=== PATIENT | male | born 1995 | race Hispanic/Latino ===

== ENCOUNTER 2023-10-31 18:48 | Emergency (ER) | payer BC, SELFPAY ==
[2023-10-31 18:59] VITALS: BP 137/84; PULSE 72; RESP 16; TEMP 36.9; O2SAT 100
--- NOTE | 2023-10-31 19:08 | ED.URI ---
HPI - URI/Sore Throat General Chief Complaint: Upper Respiratory Infection Stated Complaint: Sinus Time Seen by Provider: 10/31/23 19:14 Source: patient, RN notes reviewed and old records reviewed Mode of arrival: ambulatory Limitations: no limitations History of Present Illness HPI Narrative: 28-year-old male presents to the [facility] with complaints sinus congestion for 2 weeks. States that he has had a cough, postnasal drainage, felt short of breath yesterday for about 30 minutes but feels okay today. States he has taken allergy medication 1 time minute did not help. Tried some [id number] cold and flu medication Onset (ago): week(s) (Over 2 weeks) Treatments prior to arrival: cold medicine Related Data Allergies Allergy/AdvReac Type Severity Reaction Status Date / Time No Known Allergies Allergy Unknown Unverified 04/12/17 07:41 Review of Systems Review of Systems: All systems reviewed & are unremarkable except as noted in HPI and below Constitutional: Constitutional: Reports no additional constitutional complaints Eyes: Eyes: Reports no additional eye complaints ENT: Reports as per HPI Cardiovascular: Cardiovascular: Reports no additional cardiovascular complaints, Denies chest pain and Denies dyspnea Respiratory: Respiratory: Reports as per HPI, Denies chest congestion, Reports cough and Denies dyspnea Gastrointestinal: Gastrointestinal: Reports no additional gastrointestinal complaints, Denies abdominal pain, Denies nausea and Denies vomiting Musculoskeletal: Musculoskeletal: Reports no additional musculoskeletal complaints Integumentary/Breasts: Skin/Breast: Reports system reviewed and no additional complaints, except as docu Neurologic: Reports system reviewed and no additional complaints, except as documented Psychiatric: Psychiatric: Reports no additional psychiatric complaints Allergic/Immunologic: Allergic/Immunologic: Reports no additional allergic/immunologic complaints PMFSH Comments At the time of my signature, I reviewed and agree with the nursing past medical, surgical, social, and family history. There is no relevant family history pertinent to the patient complaint. Exam Const: General: cooperative, healthy appearing, comfortable, no acute distress, well developed, alert and well nourished Nutritional Appearance: well nourished Orientation/consciousness: patient oriented x3 Limitations: no limitations HENMT: Head: normal to inspection Ears: hearing grossly normal bilaterally, external ears normal, EAC's normal, mastoids normal, no periauricular adenopathy and TM abnormal wth effusion serous bilateral; not bulging and not erythematous Face/Nose/Sinus: Normal external nose present, Normal nares present, Normal nasal mucous membranes and turbinates present, No nasal discharge present, normal facial exam, sinuses nontender, face symmetric, No abrasion, No crepitus, No ecchymosis, No erythema and No sinus tenderness Face and sinus: normal facial exam, sinuses nontender and face symmetric Mouth: Yes Normal oral and palatal mucosa present, Yes lip normal and Yes moist mucous membranes Throat: posterior oropharynx normal, tonsils normal, uvula midline, postnasal drainage and no uvular edema Eyes: General: appearance normal, both eyes and all related structures Alignment and Position: alignment normal Periorbital: periorbital findings normal Pupils: Equal, round and reactive pupils present EOM: EOMs intact bilaterally Neck: Neck: normal visual inspection, full ROM, no lymphadenopathy and no meningeal signs Chest: Chest palpation & inspection: normal inspection of the chest Resp: Effort & Inspection: normal respiratory effort and able to speak in complete sentences Auscultation: clear to auscultation bilaterally, no crackles, no rales, no rhonchi and no wheezes Cardio: Rate: regular rate Rhythm: regular rhythm Back/Spine/Pelvis: Cervical Spine: cervical ROM normal Skin: General skin e
== END 2023-10-31 19:25 | disposition home or self-care (01) ==
PROVIDERS: Emergency Provider Nurse Practitioner
DX: J32.9 Chronic sinusitis, unspecified (principal); J40 Bronchitis, not specified as acute or chronic
CPT/HCPCS: 99213; G0463

== ENCOUNTER 2024-03-03 09:51 | Emergency (ER) | payer BC, SELFPAY ==
--- NOTE | ~2024-03-03 | CT_ITS ---
Non-contrast Head CT History: Head injury Technique: Axial non-contrast imaging of the brain was performed. Dose reduction technique was used on this scan by utilizing automated exposure control and iterative reconstruction technique. The dose -length product (DLP) was 681.00 mGy-cm. Findings: There is no evidence of intracranial hemorrhage, mass lesion, or acute infarct. Brain par enchyma appears normal. The ventricles and subarachnoid spaces are normal in size. The calvarium ap pears normal. The visualized paranasal sinuses and mastoid air cells are clear. Impression: No significant abnormality seen. Reviewed, dictated and finalized at location . Impression: No significant abnormality seen.
[2024-03-03 09:55] VITALS: BP 113/61; PULSE 82; RESP 18; TEMP 36.8; O2SAT 96
--- NOTE | 2024-03-03 10:16 | ED.HEATRA ---
HPI - Head Injury General Chief complaint: Head Injury Stated complaint: head injury Time Seen by Provider: 03/03/24 09:59 Source: patient Mode of arrival: ambulatory Limitations: no limitations History of Present Illness HPI Narrative: This is a 29-year-old male that presents to the emergency department after a head injury. Reports a long wooden shelf fell from the top of the steps and hit him in the head. He did not lose consciousness. Reports feeling lightheaded and nauseous. Also reports a headache. He sustained a laceration to the top of his head. Unsure of last tetanus vaccination. Denies vomiting, focal numbness or weakness. Related Data Allergies Allergy/AdvReac Type Severity Reaction Status Date / Time No Known Allergies Allergy Unknown Unverified 04/12/17 07:41 Review of Systems Review of Systems: CONSTITUTIONAL: Denies fever EYES: Denies visual changes GASTROINTESTINAL: Reports nausea. Denies vomiting NEUROLOGIC: Reports headache. Denies numbness, or weakness. All systems reviewed & are unremarkable except as noted in HPI and below PMFSH Past Medical History Medical History (Updated 03/03/24 @ 11:06 by Chantel Ramos PA-C) No active medical problems Social History Social History (Updated 03/03/24 @ 10:18 by Chantel Ramos PA-C) Smoking status: Never smoker Exam Narrative: GENERAL: Well-appearing, well-nourished, and in no acute distress. HEAD: Normocephalic. 2.5cm linear laceration into subcutaneous tissue to the right scalp EYES: PERRLA and EOMI. ENT: Nares clear, no rhinorrhea or epistaxis. Mucous membranes moist. Oropharynx without tonsillar hypertrophy exudate or other lesions. Bilateral TMs pearly hills non-bulging NECK: Supple. No adenopathy or masses. CHEST: Clear to auscultation. No respiratory distress. No wheezes rales or rhonchi HEART: Regular rate and rhythm. No murmur heard. Normal peripheral pulses. EXTREMITIES: Normal range of motion. No edema. Strength equal in bilateral upper and lower extremities (5/5) SKIN: Warm, dry, no rash. NEURO: No focal deficits. Alert and oriented x3. Cranial nerves 2-12 grossly intact PSYCH: Normal mood and affect Course Course Emergency Course: Patient updated on workup and educated on further wound care Vital Signs Vital signs: Vital Signs Pulse Rate 82 09/06/24 09:55 Respiratory Rate 18 03/03/24 09:55 Blood Pressure 113/61 03/03/24 09:55 Pulse Oximetry 96 03/03/24 09:55 Oxygen Delivery Room Air 03/03/24 09:55 Pulse Rate 82 03/03/24 09:55 Respiratory Rate 18 03/03/24 09:55 Blood Pressure 113/61 03/03/24 09:55 Pulse Oximetry 96 03/03/24 09:55 Oxygen Delivery Room Air 03/03/24 09:55 Procedures Laceration Laceration 1: Date: 03/03/24 Time: 10:47 Site: scalp Side (If applicable): right Size (cm): 2.5 Description: linear Depth: simple, single layer Local Anesthetic: lidocaine 1% and with epi Amount of anesthesia used (mL): 2 Pre-repair: wound explored and irrigated ====== Skin Level ====== Skin layer closed with: santi Number of sutures: 2 ====== Subcutaneous Layer ====== ====== Muscle Layer ====== ====== Tendon Layer ====== MDM - Head Injury MDM Narrative Medical decision making narrative: This is a 29 year old male that presents to the ER after a head injury with laceration to the scalp. Reports a large shelf falling onto his head. Reports nausea, lightheadedness, headache. He did not lose consciousness. He is neurologically intact. CT brain without acute intracranial abnormalities. Patient was updated on tetanus vaccination. wound was irrigated and closed with santi. Patient was educated on further wound care. He is to follow up with primary provider. He was given warnings to return to the ER Imaging Data Radiologist's impression: ITS Impressions Head CT
[2024-03-03] MEDS: TETANUS,DIPHTHERIA,AC PERTUSSIS ADULT (0.5 ML) BOOSTRIX IM (10:33)
[2024-03-03] MEDS: LIDO 1%/EPINEPHRINE 1:100,000 20 ML VIAL 10 ML INFILTRATE (10:34)
[2024-03-03 11:20] VITALS: BP 113/82; PULSE 71; RESP 20; TEMP 36.9; O2SAT 100
== END 2024-03-03 11:20 | disposition home or self-care (01) ==
LOC: ANHED 11:12
PROVIDERS: Emergency Provider Physician Assistant
DX: S01.01XA Laceration without foreign body of scalp, initial encounter (principal); W20.8XXA Other cause of strike by thrown, projected or falling object, initial encounter; Z23 Encounter for immunization
CPT/HCPCS: 12001; 70450; 90471; 90715; 99284

== ENCOUNTER 2024-08-24 04:42 | Emergency (ER) | payer BC, SELFPAY ==
--- OUTSIDE RECORDS SUMMARY | 2024-08-24 04:44 | XMS_ITS | CONTINUITY OF CARE DOCUMENT ---
Author Name ynes quick Address Unknown Organization [facility] Address [address] [place] [address] Phone [phone] Care Team Providers Care Sensory Scientist Name Role Phone Idris Braxton MD Unavailable [phone] Idris Braxton MD Unavailable [phone] INSURANCE PROVIDERS Payer name Policy type / Coverage type [employer] ID [id number]
--- OUTSIDE RECORDS SUMMARY | 2024-08-24 04:45 | XMS_ITS | Data Portability ---
Author Organization [place] [facility], Main Office Address [address] [place] [address] Assessment No assessment recorded. Plan of Treatment Reminders Order Date Submit Date Provider Last Modified By Organization Details Last Modified Time Details Appointments Any 15 2024 04:00P M Elizabeth simmons MD Not available Not available Not available Lab vitamin D, 25-hydrox y, total, serum 2024 025 [facility] [employer] [facility], [address], [place], [address], 07/13/2024 17:41:31 CBC w/ auto diff 2024 025 [facility], [address], [place], [address], 07/13/2024 17:41:30 CMP, serum or plasma 2024 025 [facility], [address], [place], [address], 07/13/2024 17:41:31 TSH + free T4, serum 2024 025 [facility], [address], [place], [address], 07/13/2024 17:41:32 lipid panel, serum 2024 025 [facility], [address], [place], [address], 07/13/2024 17:41:29 vitamin D, 25-hydrox y, total, serum 2023 024 [email or web address], [address], [place], [address], 07/06/2024 09:12:02 CMP, serum or plasma 2023 024 [email or web address], [address], [place], [address], 07/06/2024 09:12:01 CBC w/ auto diff 2023 024 [email or web address], [address], [place], [address], 07/06/2024 09:12:01 TSH + free T4, serum 2023 024 [email or web address], [address], [place], [address], 07/06/2024 09:12:01 lipid panel, serum 2023 024 [email or web address], [address], [place], [address], 07/06/2024 09:12:01 vitamin D, 25-hydrox y, total, serum 2023 024 [email or web address], [address], [place], [address], 01/12/2024 17:34:26 CMP, serum or plasma 2023 024 [email or web address], [address], [place], [address], 01/12/2024 17:34:25 CBC w/ auto diff 2023 [address] [place] [address] [facility], [address], [place], [address], 01/12/2024 17:34:25 TSH + free T4, serum 2023 024 [place] [address] [employer] [facility], [address], [place], [address], 01/12/2024 17:34:26 lipid panel, serum 2023 024 [place] [address] [employer] [facility], [address], [place], [address], 01/12/2024 17:34:26 Referral psychiatr ist referral - Please call patient to schedule an appointme nt. Thank you.Note from provider: Has seen Brian Kwon--lorena agee like to continue with her 2024 [facility] [address], [place], [address], 08/15/2024 12:35:26 Procedures None recorded. Surgeries None recorded. Imaging CT, chest, w/o contrast - no auth required [address] ([facility]), [address] [place], [address], 10/26/2023 15:53:15 MRI, brain, w/o contrast - no auth required [address] ([facility]), [address] [place], [address], 10/26/2023 15:53:15 Medication Orders Ubrelvy 50 mg tablet 2023 024 [id number], [address], [place], [place], [id number], 01/06/2024 16:30:54 buspirone 5 mg tablet 2023 024 [id number], [address], [place], [place], [id number], 07/13/2024 16:51:21 Ubrelvy 50 mg tablet 2023 024 [facility] #[id number], [address], [place], [place], [phone], 07/08/2023 17:14:15 Patient TargetsNo targets recorded. Patient InstructionsNo instructions recorded. Reason for Referral Psychiatrist Referral for An xiety Please call patient to schedule an appointment. Thank you.Note from provider: Has seen Brian Kwon--would like to continue with her Referring Physician: Elizabeth Jones, Internal Medicine, Encounter Date: 07/13/2024 Results Created Date Observation Date Name Description Value Unit Range Abnormal Flag Note LastModifiedBy Organization Detail LastModifiedTime 07/19/19 24 07/19/2023 CT, chest , w/o contr ast [facility] [address] [address] Patien t Name: RASHEED BRADLEY O Access ion #: [id number] Sex: M : 1994 8 Dictat ed By: Shantanu Mata ms Attend ing Physic emilie: GEE KATHLEEN Orderi Physic emilie: GEE KATHLEEN Exam Date: 2023 14:48 PM Exam Name: CT CHEST WO Admitt ing Diagno sis(es ): Proced ure: CT CHEST WO Reason for study/ Clinic al Histor y: Chest wall pain Compar domonique Study: None availa ble at time of dictat ion. Exam Date: 2:48 PM REPORTING DEVELOPER TECHNI QUE: Multid etecto r CT of the chest was perfor med from the lung apices to the upper abdome n withou t the use of intrav enous contra ct. Axial, garg l and sagitt al multip lanar reform ats were perfor med. RADIAT ION DOSE: CTDI volume is 13.2 mGy. Dose-l ength produc t is 532.7 mGy*cm The dose indica tors for CT are the volume Comput ed Tomogr aphy (CT) Dose Index (CTDIv ol) and the Dose Length Produc t (DLP), and are measur ed in units of mGy and mGy-cm , respec tively . These indica tors are not patien t dose, but values genera maegan from the CT scanne r acquis ition factor s. The report includ es radiat ion exposu re data for exposu res receiv ed during this examin ation. FINDIN GS: Lower neck: Normal thyroi d. Lungs: No focal consol idatio n, pleura l effusi on or pneumo thorax . Heart/ Vascul ar Struct ures: Normal heart size. No perica rdial effusi on. Lymph Nodes: No adenop athy Pleura : No pleura l effusi on or signif icant pneumo thorax . Page 1 [facility] [place] [address] Patien t Name: RASHEED BRADLEY Niall Access ion #: [id number] Sex: M : 1994 7 Dictat ed By: Shantanu Mata ms Attend ing Physic emilie: MUNIRA MENDEZ [facility] Physic emilie: GEE KATHLEEN Exam Date: 2023 14:48 PM Exam Name: CT CHEST WO Admitt ing Diagno sis(es ): Muscul oskele prasanna: No acute osseou s abnorm ality. Soft tissue s: Normal . Upper abdome n: Limite d portio ns of the upper abdome n are unrema rkable . IMPRES MARITZA: No acute intrat horaci c abnorm ality. Unrema rkable CT of the chest withou t contra st. Radiat ion optimi zation : All CT scans at this facili ty use at least one of these dose optimi zation techni ques: automa maegan exposu re contro l mA and/or kV adjust ment per patien t size (inclu emanuel target ed exams where dose is matche d to clinic al indica tion) or iterat javier recons tructi on. Electr onical ly Signed by: Shantanu Mata ms at 2023 16:04: 06 PM Page 2 [email or web address] [facility] (Imaging) [address] [place], [address], 10/26/2023 15:54:14 07/19/19 24 07/19/2023 MRI, brain , w/o contr ast [facility] [place] [address] [place] [id number] Patien t Name: CHELYMAGALI O RASHEED O Access ion #: [id number] Sex: M : 1994 8 Dictat ed By: Lee Watson Attend ing Physic emilie: GEE KATHLEEN Orderi Physic emilie: GEE KATHLEEN Exam Date: 2023 14:50 PM Exam Name: MRI BRAIN WO Admitt ing Diagno sis(es ): ACCESS ION #: [id number] EXAMIN ATION: MRI BRAIN WO INDICA TION: migrai ne COMPAR DOMONIQUE: None TECHNI QUE: Multip lanar, multis equenc e magnet ic resona nce imagin g of the brain was perfor med withou t the use of intrav enous contra st. FINDIN GS: No eviden ce of acute or remote infarc t. No intrac ranial hemorr evelio. No mass effect . There is perive ntricu lar/de ep white matter T2/FLA IR hyperi ntensi ty is nonspe cific, but most common ly associ ated with chroni c microv ascula r diseas e. The ventri cles and sulci are normal in size for age. Clear basal cister ns. Flow voids in the major intrac ranial vessel s are mainta ined. No abnorm ality of the orbits . Parana vikram sinuse s and mastoi d air cells are clear. No abnorm ality of the visual ized osseou s struct ures and extrac ranial soft tissue s. IMPRES MARITZA: Page 1 [facility] [address] [facility] [address], [place] [address] Patien t Name: RASHEED BRADLEY O Access ion #: [id number] Sex: M : 1994 8 Dictat ed By: Lee Watson Attend ing Physic emilie: MUNIRA MENDEZ [facility] Physic emilie: GEE KATHLEEN Exam Date: 2023 14:50 PM Exam Name: MRI BRAIN WO Admitt ing Diagno sis(es ): No acute infarc t, intrac ranial hemorr evelio, mass effect , or hydroc ephalu s. Electr onical ly Signed by: Lee Watson at 2023 16:04: 30 PM Page 2 [email or web address] [facility] [address] [facility] [place], [address], 10/26/2023 15:54:15 Result Notes None recorded. Problems Name Problem SNOMED Code Status Onset Date Resolution Date Notes Provider Name and Address Organization Details Recorded Time Vitamin D deficiency 37409702 Active 2023 Elizabeth simmons MD [address], [place], [address], [employer] [facility] [employer] [facility] 4 17:10:39 Migraine 74776107 Active 2023 Elizabeth simmons MD [address], [place], [address], [employer] [facility] 4 17:10:47 Chest wall pain 114225965 Active 2023 Elizabeth simmons MD [address], [place], [address], [employer] [facility] 4 17:12:58 Anxiety 03004150 Active 2023 Elizabeth simmons MD [address], [address], [place], [address], [employer] [facility] 4 16:42:02 Hyperlipidemia 81156898 Active 2024 Elizabeth simmons MD [address], [address], [place], [address], [employer] [facility] 5 17:29:22 Problem Notes None recorded. Procedures Surgical History Date Name Laterality Status Provider Name and Address Organization Details Recorded Time other completed FAISAL Fernandez [facility] 07/08/2023 16:48:30 other completed FAISAL Fernandez [facility] 07/08/2023 16:49:09 Imaging Results Imaging Date Name Status LastModified by Organiz ation Details LastModified Time 07/19/2023 CT, chest, w/o contrast completed [address] (Imaging) [address] [place], [address], 10/26/2023 15:54:14 07/19/2023 MRI, brain, w/o contrast completed [address] (Imaging) [address] [place], [address], 10/26/2023 15:54:15 Procedure Notes None recorded. Medical Equipment None Reported. Allergies Allergen ID Allergen Name Allergen Category Reaction Reaction Severity Criticality Documentation Date Start Date Code Code System Note Provider Name and Address Organization Details Recorded Time 93380 cat dander environme nt hives itching Not available Not available Not available 07/08/2023 83125 UNK FAISAL Fernandez [facility] [employer] [facility] 4 16:36:56 No known drug allergies Medications Name Sig Start Date Stop Date Status Note LastModified by Organization Details LastModified Time buspirone 5 mg tablet Take 1 tablet twice a day by oral route for 30 days. 07/13 completed Not Available Not Available Not Available ondansetron HCl 4 mg tablet active Not Available Not Available Not Available acetaminoph en 300 mg-codeine 30 mg tablet TAKE 1 TABLET EVERY 4 HOURS NEEDED FOR PAIN 01/05 completed Not Available Not Available Not Available cephalexin 500 mg capsule TAKE 1 CAPSULE BY MOUTH FOUR TIMES A DAY 01/05 completed Not Available Not Available Not Available fluoxetine 20 mg capsule active Not Available Not Available Not Available amoxicillin 875 mg-potassiu m clavulanate 125 mg tablet TAKE 1 TABLET BY MOUTH EVERY 12 HOURS 01/05 completed Not Available Not Available Not Available Ubrelvy 50 mg tablet TAKE 1 TABLET BY MOUTH ONCE NEEDED FOR MIGRAINE MAY REPEAT IN 2 HOURS MAX OF 2 TABLET PER 24 HOURS active Not Available Not Available No t Available Vitals Date Recorded Body height Body mass index (BMI) Body weight Body temperature Heart rate Systolic blood pressure Diastolic blood pressure Provider Name and Address Organization Details Last Updated DateTime 4 170.18 cm 30.2 kg/m2 79097.3 3 g 97.4 [degF] 72 /min 120 mm[Hg] 72 mm[Hg] FAISAL Fernandez [place] [facility] 4 16:51:40 Date Recorded Body height Body mass index (BMI) Body weight Body temperature Heart rate Oxygen saturation Oxygen saturation in Arterial blood by Pulse oximetry Systolic blood pressure Diastolic blood pressure Provider Name and Address Organization Details Last Updated DateTime 4 170.18 cm 29.3 kg/m2 57565.7 7 g 98.1 [degF] 62 /min 98 % 98 % 110 mm[Hg] 68 mm[Hg] Brenda Colindres MA [facility] 4 16:20:37 Date Recorded Body height Body mass index (BMI) Body weight Body temperature Heart rate Systolic blood pressure Diastolic blood pressure Provider Name and Address Organization Details Last Updated DateTime 5 170.18 cm 28.3 kg/m2 68530.2 2 g 97.8 [degF] 72 /min 120 mm[Hg] 80 mm[Hg] FAISAL Fernandez [place] [facility] 5 16:53:00 Social History Question Answer Notes LastModified by Organization Details LastModified Time Tobacco Smoking Status Never Smoker Jacquelin Cordero, FAISAL fried, [facility] 07/08/2023 16:42:25 Do You Have An Advance Directive? No Information not available 07/08/2023 What Is Your Level Of Alcohol Consumption? Occasional Information not available 07/08/2023 What Is Your Level Of Caffeine Consumption? Moderate Information not available 07/08/2023 In The 14 Days Before Symptom Onset, Have You Had Close Contact With A Laboratory-conf irmed COVID-19 While That Case Was Ill? No Information not available 07/08/2023 In The 14 Days Before Symptom Onset, Have You Had Close Contact With A Person Who Is Under Investigation For COVID-19 While That Person Was Ill? No Information not available 07/08/2023 Are You Currently Employed? Yes Information not available 07/08/2023 What Type Of Diet Are You Following? REGULAR Information not available 07/08/2023 Which Illicit Or Recreational Drugs Have You Used? Marijuana Occasional Information not available 07/08/2023 Do You Or Have You Ever Used E-cigarettes Or Vape? Current User Of Electronic Cigarettes Vape Information not available 07/08/2023 What Is The Highest Grade Or Level Of School You Have Completed Or The Highest Degree You Have Received? 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 No Information not available 01/06/2024 What Is The Fluoride Status Of Your Home? Unknown Information not available 07/08/2023 Are There Any Guns Present In Your Home? No Information not available 07/08/2023 Do You Use Insect Repellent Routinely? No Information not available 01/06/2024 Where Do You Live? SingleLevelHouse Information not available 07/08/2023 Do You Have A Medical Power Of Integrated Logistics Operations Manager? No Information not available 07/08/2023 What Was The Date Of Your Most Recent Tobacco Screening? 07/13/2024 Information not available 07/13/2024 Do You Have Any Pets? No Information not available 07/08/2023 What Is Your Relationship Status? Single Information not available 07/08/2023 Do You Use Your Seat Belt Or Car Seat Routinely? Yes Information not available 07/08/2023 Do You Have Smoke And Carbon Monoxide Detectors In Your Home? Yes Information not available 07/08/2023 Are You Passively Exposed To Smoke? No Information not available 07/08/2023 Do You Or Have You Ever Used Smokeless Tobacco? Never Used Smokeless Tobacco Information not available 07/08/2023 Are There Any Smokers In Your House? No Information not available 07/08/2023 Do You Feel Stressed (tense, Restless, Nervous, Or Anxious, Or Unable To Sleep At Night)? [id number] Information not available 07/08/2023 Do You Use Any Illicit Or Recreational Drugs? Yes Information not available 07/08/2023 Do You Use Sunscreen Routinely? No Information not available 01/06/2024 Have You Recently Traveled Abroad? No Information not available 07/08/2023 Have You Used IV Drugs? No Information not available 07/08/2023 Do You Or Have You Ever Used Any Other Forms Of Tobacco Or Nicotine? Yes Information not available 07/08/2023 Sex: Male Functional Status Question Answer Note LastModified by Organization D etails LastModified Time What is your exercise level? Moderate Information not available 07/08/2023 Mental Status None recorded. Family History Relationship Description Onset Age of this Age Resolved Age Notes LastModified by Organization Details LastModified Time Mother Mixed anxiety and depressive disorder [email or web address] Not available 12/26 16:13:11 Father General health good [email or web address] Not available 16:13:11 Maternal Grandmother Diabetes mellitus Not available 2023 16:39:30 Sister Lupus erythematosu s 26 [email or web address] Not available 12/26 16:13:11 Medical History Condition Response NERVE DISEASE N BLINDNESS N RHEUMATIC FEVER N KIDNEY STONES N BLADDER PROBLEMS N MRSA N OTHER # 1 N POLIO N LUNG DISEASE/DISORDER N HISTORY OF DRUG ABUSE N RADIATION / CHEMOTHERAPY N COPD N Other # 2 N BLOOD DISEASES N EAR OR HEARING PROBLEMS N MUMPS N SHINGLES N BOWEL PROBLEMS N DEPRESSION (INCLUDING POST ) N FAILED BACK SYNDROME N STROKE/TIA N ULCERS N BENIGN PROSTATIC HYPERPLASIA N MEASLES N HYPOTENSION N MYOCARDIAL INFARCTION N OBESITY N GERD/NAUSEA N ANEURYSM N URINARY/BLADDER/KIDNEY PROBLEMS N CORONARY ARTERY DISEASE (CAD) N Do you have Advance directive? N ADDICTION CONCERNS N Impotence N ENDOMETRIOSIS N USE OF BLOOD THINNERS N SKIN PROBLEMS N GASTROINTESTINAL DISORDER N PERIPHERAL VASCULAR DISEASE N MUSCLE,JOINT OR BONE PROBLEMS N GASTROINTESTINAL BLEEDING N BLOOD CLOTS N ASTHMA N CATARACTS N Abdominal Pain N ERECTILE DYSFUNCTION N ARTERIAL INSUFFICIENCY N VARICOSITIES N GI PROBLEMS N Low Testosterone N INFERTILITY N AIDS/HIV N CHEMOTHERAPY / RADIATION N LIVER DISEASE N MALE HYPOGONADISM N HYPERTENSION N Deficiency N TOURETTE'S N ANXIETY DISORDER N BLOOD TRANSFUSION N ANEMIA/BLOOD DISORDER N CHRONIC EAR INFECTIONS N TUBERCULOSIS N GLAUCOMA N FOOT PROBLEM N DIVERTICULITIS N SLEEP APNEA N CHICKENPOX N ALLERGIES/HAYFEVER N BACK INJECTIONS N INFECTIOUS DISEASE N PROSTATE N HEART ARRHYTHMIA N ESRD N INSOMNIA N HIGH CHOLESTEROL / HYPERLIPIDEMIA N EYE PROBLEMS N HYPERTHYROIDISM N PVD N EDEMA N CHRONIC PAIN SYNDROME N HYPOTHYROIDISM N CONSTIPATION N CAROTID BLOCKAGE N BACK / NECK PROBLEMS N ATHEROSCLEROSIS N BREAST PROBLEMS N DIALYSIS N POLYCYSTIC OVARIES N ECZEMA N OSTEOPOROSIS N ARTHRITIS N APPENDICITIS N DIABETES, TYPE N BAD TEETH N VON WILLIBRAND'S DISEASE N ENT N HEARTBURN / REFLUX N GI N AUTISM SPECTRUM DISORDER (ASD) N POST LAMINECTOMY SYNDROME N HEPATITIS / LIVER DISEASE N GOUT N SLEEP DISORDER N ALZHEIMER'S DISEASE N Brain Problems N DEMENTIA N HERPES N SEIZURES/EPILEPSY N HEADACHES/MIGRAINES N VASCULAR DISEASE N PACEMAKER N DIZZINESS N HEART DISEASE/HEART PROBLEMS N KIDNEY DISEASE N MULTIPLE SCLEROSIS N NEUROPSYCHOLOGICAL N CANCER: SPECIFY N CARDIAC ARRHYTHMIA N ATRIAL FIBRILLATION N Gall Stones N PULMONARY EMBOLISM N AUTOIMMUNE DISEASE N Immunizations Vaccine Type Date Status Note Provider Nam e and Address Organization Details Recorded Time Hib, unspecified formulation 08/12/1995 completed HOMERO Nielsen, [place] [facility] [place] [employer] [facility] 12/29/2023 14:06:12 Hib, unspecified formulation 1994 completed Bharath Julian LPN null, [place] [facility] 12/29/2023 14:06:12 IPV 08/12/1995 completed Bharath Julian LPN null, [place] [facility] 12/29/2023 14:06:12 IPV 1994 completed Bharath Julian LPN null, [facility] 12/29/2023 14:06:12 IPV 02/18/2000 completed Bharath Julian LPN null, [facility] 12/29/2023 14:06:12 MMR 08/12/1995 completed Bharath Julian LPN null, [facility] 12/29/2023 14:06:12 MMR 10/14/1998 completed Bharath Julian LPN null, [facility] 12/29/2023 14:06:12 COVID-19, mRNA, LNP-S, PF, 100 mcg/0.5mL dose or 50 mcg/0.25mL dose 08/26/2020 completed Bharath Julian LPN null, [facility] 12/29/2023 14:06:12 COVID-19, mRNA, LNP-S, PF, 100 mcg/0.5mL dose or 50 mcg/0.25mL dose 06/08/2021 completed Bharath Julian LPN null, [facility] 12/29/2023 14:06:12 Tdap 04/10/2009 completed Bharath Julian LPN null, [place] [facility] 12/29/2023 14:06:13 DTP 08/12/1995 completed Bharath Julian LPN null, [facility] 12/29/2023 14:06:13 DTP 1994 completed Bharath Julian LPN null, [place] [facility] 12/29/2023 14:06:13 DTP 02/18/2000 completed Bharath Julian LPN null, [facility] 12/29/2023 14:06:13 OPV 10/14/1998 completed Bharath Julian LPN null, [place] [employer] [facility] 12/29/2023 14:06:13 Hep B, adolescent or pediatric 08/12/1995 completed Bharath Julian LPN null, [facility] [employer] [facility] 12/29/2023 14:06:13 Hep B, adolescent or pediatric 1994 completed Bharath Julian LPN null, [facility] [employer] [facility] 12/29/2023 14:06:13 Hep B, adolescent or pediatric 02/18/2000 completed Bharath Julian LPN null, [facility] [employer] [facility] 12/29/2023 14:06:13 DTaP 10/14/1998 completed Bharath Julian LPN null, [facility] [employer] [facility] 12/29/2023 14:06:13 Influenza, split virus, trivalent, PF 07/13/2024 completed Elizabeth Jones MD [address] [facility], [address], [place], [address], [facility] 08/01/2024 18:41:54 Past Encounters Encounter ID Performer Location Encounter Start Date Encounter Closed Date Diagnosis/Indication Diagnosis SNOMED-CT Code Diagnosis ICD10 Code Diagnosis Note [id number] Elizabeth roldan MD [facility] Internal Med [place] [address] [facility], [facility] [[email or web address] [address] [place] [address] 07/08/2023 16:26:54 07/08/2023 17:18:03 Screening - NAD 079034397 Z13.9 Get yearly flu shot, declined 07/08/2023 Get tdap if not done, declined 07/08/2023 Get COVID 19 vaccine and its boosters RTC in 6 months, do labs, ER if worse, he did verbalize his understand ing of the above Adult heal th examination 195529978 Z00.00 Get labs Vitamin D deficiency 347 05871 E55.9 Migraine 10665180 G43.90 9 Get on ubrelvy, get MRI brainMay need to see neurologis t Chest wall pain 23411210 6 R07.89 Feels that this ocurred with his work out in the gym, now has pain only when he 'twists', no SOB, no L chest painGet CT chest done [id number] Elizabeth roldan MD [facility] Internal Med [facility] [[email or web address]] [address] [facility], [address] [address] 01/06/2024 16:12:10 01/06/2024 16:42:44 Screening - NAD [id number] Z13.9 Get yearly flu shot, declined 07/08/2023 Get tdap if not done, declined 07/08/2023 Get COVID 19 vaccine and its boosters RTC in 1 month, do labs, ER if worse, he did verbalize his understand ing of the above Adult heal th examination [id number] Z00.00 Get labs Vitamin D deficiency 347 [id number] E55.9 Migraine [id number] G43.90 9 Get on ubrelvy,MR Card brain 07/19/2023 : negMay need to see neurologis t Chest wall pain [id number] 6 R07.89 Feels that this ocurred with his work out in the gym, now has pain only when he 'twists', no SOB, no L chest painGet CT chest done OV 01/06/2024 :CT chest 07/19/2023 : NegativeDo es well now Anxiety [id number] F41.9 Get on buspirone 5mg po bidNot suicidal or homicidal, declined any referral to psychiatry today, if not better will see psychiatry RTC in one month [id number] Elizabeth roldan MD [facility] Internal Med [facility] [[email or web address]] [address] [facility], [address] [address] 07/13/2024 16:35:48 07/13/2024 17:45:26 Screening - NAD [id number] Z13.9 Get yearly flu shot, declined 07/08/2023 Get tdap if not done, declined 07/08/2023 Get COVID 19 vaccine and its boosters RTC in 1 month, do labs, ER if worse, he did verbalize his understand ing of the above Vitamin D deficiency 347 52545 E55.9 Migraine [id number] G43.90 9 Get on ubrelvy,MR Card brain 07/19/2023 : negMay need to see neurologis t Chest wall pain [id number] 6 R07.89 Feels that this ocurred with his work out in the gym, now has pain only when he 'twists', no SOB, no L chest painGet CT chest done OV 01/06/2024 :CT chest 07/19/2023 : Negative OV 07/13/2024 Does well now Anxiety [id number] F41.9 Get on buspirone 5mg po bidNot suicidal or homicidal, declined any referral to psychiatry today, if not better will see psychiatry RTC in one month OV 07/13/2024 :Now on fluoxetine 20mg dailyDoes wellNot suicidal or homicidal Hyperlipidemia [id number] E78.5 Not on any medication sGet labs Administra tion of influenza vaccine [id number] Z23 Health Concerns Section Related Observation LastModified by Organization Detai ls LastModified Time None Recorded Concern Status LastModified by Organization Details LastModified Time None Recorded Advance Directives Directive N: Payers Encounter Date Sequence Insurance Name Policy Number Policy Cruz Covered Member ID Cruz Member ID Guarantor Name 07/08/2023 1 [place] [id number] Francisco Leon [id number] Francisco Leon 01/06/2024 1 [place] [id number] Francisco Leon [id number] Francisco Leon 07/13/2024 1 [place] [id number] Francisco Leon [id number] Francisco Leon Notes Date Note Type Note Provider Name and Address Organization Details Recorded Time 07/08/2023 text/html OV 07/08/2023:He re to establish care and his wellness visit Past Hx:Migraines, none today, not on any medications Reviewed social family and surgical history Does well, does want to get on medication for his occasional migraine, he states that he does have some aura with the migraine and feels nauseous, states that the exedrin does not help usuallyHe has also noted that he has some R lateral chest wall pain, this is since he exercised in the gym, now only occurs when he does a 'twisting' mechanism Elizabeth Jones MD [address] [facility], [facility] [[email or web address]] [address], [place], [address], [place] [facility] [place] [employer] 07/08/2023 17:21:21 01/06/2024 text/html OV 07/08/2023:He re to establish care and his wellness visit Past Hx:Migraines, none today, not on any medications Reviewed social family and surgical history Does well, does want to get on medication for his occasional migraine, he states that he does have some aura with the migraine and feels nauseous, states that the exedrin does not help usuallyHe has also noted that he has some R lateral chest wall pain, this is since he exercised in the gym, now only occurs when he does a 'twisting' mechanism OV 01/06/2024: Here for his f/u apt, he is doing well today, no new labs, states that he got busy with his 'kids', he does want a refill of the Ubrelvy, states that this has helped a lot, he also has noted some anxiety, feels 'high strung', not suicidal or homicidal Elizabeth oJnes MD [address], [place], [address], [facility] 01/06/2024 16:45:41 07/13/2024 text/html OV 07/08/2023:He re to establish care and his wellness visit Past Hx:Migraines, none today, not on any medications Reviewed social family and surgical history Does well, does want to get on medication for his occasional migraine, he states that he does have some aura with the migraine and feels nauseous, states that the exedrin does not help usuallyHe has also noted that he has some R lateral chest wall pain, this is since he exercised in the gym, now only occurs when he does a 'twisting' mechanism OV 01/06/2024: Here for his f/u apt, he is doing well today, no new labs, states that he got busy with his 'kids', he does want a refill of the Ubrelvy, states that this has helped a lot, he also has noted some anxiety, feels 'high strung', not suicidal or homicidal OV 07/13/2024: Here for his f/u apt, is doing well today Elizabeth Jones MD [address], [place], [address], [place] [facility] 08/01/2024 18:43:49
[2024-08-24 04:46] VITALS: BP 154/98; PULSE 55; RESP 18; TEMP 36.9; O2SAT 100
[2024-08-24 05:26] VITALS: BP 135/95; PULSE 53; RESP 16; TEMP 36.7; O2SAT 100
--- NOTE | 2024-08-24 06:18 | PC.NURSE ---
Patient states he went to a chiropractor yesterday and it made his neck feel worse.
--- NOTE | 2024-08-24 08:28 | ED.GENADULT ---
HPI - General Adult General Chief complaint: Neck Pain/Injury Stated complaint: neck pain for 1 week Time Seen by Provider: 08/24/24 06:56 History of Present Illness HPI narrative: This is a 29-year-old male presenting ED with chief complaint of neck pain. Patient says developed pain on the right side of his neck about 1 week ago. Pain is worse with movement. Pain is been getting gradually worse. Patient denies headache, fever chills, neurologic deficits, chest pain difficulty breathing abdominal pain nausea vomiting diarrhea. He took 1 ibuprofen 1 day ago with minimal relief. He saw chiropractor which did not help. Patient is requesting work note. Related Data Home Medications ?Medication ?Instructions ?Recorded ?Confirmed ?Last Taken ?Type No Home Medications 08/24/24 08/24/24 Unknown History Allergies Allergy/AdvReac Type Severity Reaction Status Date / Time No Known Allergies Allergy Unknown Verified 08/24/24 08:28 [facility] Past Medical History Medical History (Updated 08/24/24 @ 08:31 by Hakeem Mcdowell MD) No active medical problems Social History Social History (Updated 03/03/24 @ 10:18 by Chantel Ramos PA-C) Smoking status: Never smoker Exam Narrative: APPEARANCE: No apparent distress. Head: atraumatic. EYES: EOMI, NOSE: Atraumatic NECK: No midline tenderness, tenderness over right paracervical region around C7-T1 RESPIRATORY: No increased rate of breathing CARDIOVASCULAR: RRR, ABDOMINAL: Non-distended MUSCULOSKELETAl: Focal exam of the right upper extremity revealed no functional deficits, neurovascularly intact NEURO: Alert. Cranial nerves 2-12 grossly intact. Sensation light touch, motor function cerebellar function intact for 4 extremities. Gait exam was normal. SKIN:: Warm, dry. Normal color PSYCHIATRIC: Normal affect Course Vital Signs Vital signs: Vital Signs Temperature 98.4 F 08/24/24 04:46 Pulse Rate 55 L 08/24/24 04:46 Respiratory Rate 18 08/24/24 04:46 Blood Pressure 154/98 H 08/24/24 04:46 Pulse Oximetry 100 08/24/24 04:46 Oxygen Delivery Room Air 08/24/24 04:46 Temperature 98.1 F 08/24/24 05:26 Pulse Rate 53 L 08/24/24 05:26 Respiratory Rate 16 08/24/24 05:26 Blood Pressure 135/95 H 08/24/24 05:26 Pulse Oximetry 100 08/24/24 05:26 Oxygen Delivery Room Air 08/24/24 04:46 Medical Decision Making MDM Narrative Medical decision making narrative: -Course: 29-year-old male presenting with neck pain. CT imaging negative. No concerning findings on history physical. Patient given symptomatic treatment and discharged primary care follow-up -DDX includes but is not limited to: Muscle strain, cervical radiculopathy, muscle spasm Vital Signs Vital Signs: Vital Signs Temperature 98.4 F 08/24/24 04:46 Pulse Rate 55 L 08/24/24 04:46 Respiratory Rate 18 08/24/24 04:46 Blood Pressure 154/98 H 08/24/24 04:46 Pulse Oximetry 100 08/24/24 04:46 Oxygen Delivery Room Air 08/24/24 04:46 Temperature 98.1 F 08/24/24 05:26 Pulse Rate 53 L 08/24/24 05:26 Respiratory Rate 16 08/24/24 05:26 Blood Pressure 135/95 H 08/24/24 05:26 Pulse Oximetry 100 08/24/24 05:26 Oxygen Delivery Room Air 08/24/24 04:46 Discharge Plan Discharge Clinical Impression: Strain of neck muscle Patient Disposition: Home, Self-Care Condition: Stable Instructions: Antibiotic Form, Cervical Strain (ED) Additional Instructions: Please use medication provided as instructed. Please follow-up with your primary care physician further. Return if you develop severe pain, weakness in your arms or any new or worsening symptoms. Patient Language: Malay Prescriptions: New acetaminophen 500 mg tablet 1,000 mg PO TID PRN (Reason: isabel) 7 Days Qty: 42 0RF ibuprofen 800 mg tablet 800 mg PO TID PRN (Reason: pain) 7 Days Qty: 21 0RF methocarbamol 750 mg tablet 1,500 mg PO TID Qty: 42 0RF No Action No Home Medications Follow-up/Referrals: UNKNOWN,DOCTOR [Primary Care Provider] - Stand Alone Forms: Work/School Release IP
[2024-08-24] MEDS: ACETAMINOPHEN 500 MG TABLET 1000 MG PO (08:29)
[2024-08-24] MEDS: KETOROLAC 30 MG/ML VIAL (*BKC) IM (08:31)
[2024-08-24] MEDS: LIDOCAINE 5% PATCH 1 PATCH TRANSDERM (08:33)
[2024-08-24] MEDS: diazePAM INJ (*CRX) 10 MG/2 ML SYRINGE 5 MG IM (08:33)
[2024-08-24 08:46] VITALS: BP 133/90; PULSE 53; RESP 20; O2SAT 99
== END 2024-08-24 08:48 | disposition home or self-care (01) ==
PROVIDERS: Emergency Provider Emergency Medicine
DX: S16.1XXA Strain of muscle, fascia and tendon at neck level, initial encounter (principal); X58.XXXA Exposure to other specified factors, initial encounter
CPT/HCPCS: 72125; 96372; 96374; 99284; A9270; J1885; J3360

== ENCOUNTER 2025-06-14 17:44 | Emergency (ER) | payer SELFPAY ==
--- NOTE | ~2025-06-14 | XR_ITS ---
EXAMINATION: XR chest 2V DATE: 06/14/2025 18:35 INDICATION: Upper respiratory tract infection TECHNIQUE: PA and lateral views of the chest were obtained. COMPARISON: Chest radiograph dated 07/27/2015 FINDINGS: The lungs remain clear with no focal airspace opacities, pulmonary edema, pleural effusion or pneumothorax. The cardiomediastinal silhouette is normal. Visualized bones and soft tissues are unremarkable. IMPRESSION: 1. Normal chest radiograph. Reviewed, dictated and finalized at location A. [employer] IMPRESSION: 1. Normal chest radiograph.
[2025-06-14 17:46] VITALS: BP 145/90; PULSE 106; RESP 20; TEMP 39.1; O2SAT 98
--- NOTE | 2025-06-14 18:23 | ED_ITS ---
HPI - URI/Sore Throat General Chief Complaint: Upper Respiratory Infection Stated Complaint: URI Time Seen by Provider: 06/14/25 18:04 History of Present Illness HPI Narrative: Patient is a 30-year-old male who presents to the ER with 3 day history of fever, slight cough, swollen tonsils, and fatigue. He reports no one else in his family been sick and he has no known sick contacts. Patient reports he does share his vape with ?many other people. He denies any medical history relevant to this ER visit. Patient reports he thinks he is dehydrated. Related Data Allergies Allergy/AdvReac Type Severity Reaction Status Date / Time No Known Allergies Allergy Unknown Verified 06/14/25 17:49 Review of Systems 2 Review of Systems: All systems reviewed & are unremarkable except as noted in HPI and below PMFSH Past Medical History Medical History No active medical problems Social History Social History Smoking status: Never smoker Exam 2 Narrative: GENERAL: Ill appearing, well-nourished, non-toxic, in no acute distress. HEAD: Normocephalic, atraumatic. PERRLA NECK: Supple. Positive cervical lymphadenopathy, no masses. Reddened, swollen throat with visible pus on tonsils. No uvula deviation. RESPIRATORY: Airway patent, respirations nonlabored. Clear to auscultation bilaterally, no rales, rhonchi, wheezing. CARDIOVASCULAR: Regular rate and rhythm without murmurs, rubs, or gallops. Peripheral pulses 2+ and equal bilaterally. ABDOMINAL: Soft, nontender, nondistended, no hepatosplenomegaly. Normoactive BS. MUSCULOSKELETAL: Moves all extremities. Strength/ROM intact without gross deformities. SKIN: Warm, dry, normal color. No rashes. NEURO: A&O X3. Speech clear. Cranial nerves II-XII intact. No ataxic movements. PSYCHIATRIC: Appropriate mood and affect. Normal interaction. Course Vital Signs Vital signs: Vital Signs Temperature 39.1 C H 06/14/25 17:46 Pulse Rate 106 H 06/14/25 17:46 Respiratory Rate 20 06/14/25 17:46 Blood Pressure 145/90 H 06/14/25 17:46 Pulse Oximetry 98 06/14/25 17:46 Oxygen Delivery Room Air 06/14/25 17:46 Temperature 39.1 C H 06/14/25 17:46 Pulse Rate 106 H 06/14/25 17:46 Respiratory Rate 20 06/14/25 17:46 Blood Pressure 145/90 H 06/14/25 17:46 Pulse Oximetry 98 06/14/25 17:46 Oxygen Delivery Room Air 06/14/25 17:46 MDM MDM Narrative Medical decision making narrative: Patient is a 30-year-old male who presents to the ER with 3 day history of fever, slight cough, swollen tonsils, nausea and fatigue. He reports no one else in his family been sick and he has no known sick contacts. Patient reports he does share his vape with ?many other people. He denies any medical history relevant to this ER visit. Patient reports he thinks he is dehydrated. Labs Ordered: CBC, CMP, COVID/flu/RSV, mono test, strep test Imaging Ordered: Chest x-ray Medications Ordered: 1 L normal saline IV bolus, Toradol 15 mg IV, Tylenol 1 g p.o., amoxicillin 500 mg Results: Patient's chest x-ray indicates The lungs remain clear with no focal airspace opacities, pulmonary edema, pleural effusion or pneumothorax. The cardiomediastinal silhouette is normal. Visualized bones and soft tissues are unremarkable. Diagnosis: tonsillitis Patient Education/Shared MDM: Results of lab work and imaging shared with patient. He endorses significant improvement of symptoms following medication administration. Patient strongly advised to maintain hydration status upon discharge and follow-up with his PCP in the next 2-3 days for further evaluation. He will be discharged home with a prescription for Zofran and amoxicillin. Strict return precautions provided. Patient verbalized understanding and is in agreement with plan. Vital signs stable at time of discharge. All questions answered. Differential Diagnosis Differential Diagnosis: COVID, influenza, RSV, strep throat, mononucleosis, pneumonia Lab Data [facility] Lab Attestation statement: I personally reviewed the patient's lab results. 06/14/25 18:48 06/14/25 18:48 Labs: Lab Results 06/14/25 06/14/25 Range/Units 18:30 18:48 WBC 7.9 (4.5-10.0) K/mm3 RBC 5.21 (4.6-6.20) M/mm3 Hgb 14.8 (14.0-18.0) g/dL Hct 43.6 (42.0-52.0) % MCV 83.7 (80-100) fl MCH 28.4 (26-34) pg MCHC 33.9 (32-36) g/dl RDW 13.2 (11.5-14.5) % Plt Count 218 (150-375) k/mm3 MPV 9.4 (7.4-10.4) fl Immature Gran % (Auto) 0.3 (0-0.5) % Neut % (Auto) 71.0 (45.5-73.1) % Lymph % (Auto) 12.9 L (18.3-44.2) % [place] % (Auto) 15.3 H (2.6-8.5) % Eos % (Auto) 0.1 (0-4.4) % Baso % (Auto) 0.4 (0.2-1.2) % Lymph # (Auto) 1.02 (0.9-3.2) K/mm3 [place] # (Auto) 1.2 H (0.1-0.6) K/mm3 Eos # (Auto) 0.0 (0-0.3) K/mm3 Baso # (Auto) 0.0 (0.0-0.1) K/mm3 Abs Immat Gran (auto) 0.02 (0.00-0.031) K/mm3 Absolute Neuts (auto) 5.6 (1.3-6.7) K/mm3 Absolute Nucleated RBC 0.000 (0.0-0.012) K/mm3 Nucleated RBC % 0.0 (0.0-0.2) % Sodium 134 L (137-145) mmol/L Potassium 3.7 (3.4-5.0) mmol/L Chloride 99 (98-107) mmol/L Carbon Dioxide 28 (22-30) mmol/L Anion Gap 7 (4-12) mmol/L BUN 10 (9-20) mg/dL Creatinine 0.98 (0.7-1.3) mg/dL Estim Creat Clear Calc 90 ml/min Estimated GFR > 60 (59 - ) Glucose 104 (65-110) mg/dL Calcium 9.0 (8.4-10.2) mg/dL Total Bilirubin 0.4 (0.2-1.3) mg/dL AST 26 (17-59) U/L ALT 19 (6-50) U/L Alkaline Phosphatase 77 (38-126) U/L Total Protein 8.2 (6.3-8.2) g/dL Albumin 4.5 (3.5-5.1) g/dL Monoscreen Negative (Negative) Influenza A (RT-PCR) Negative (Negative) Influenza B (RT-PCR) Negative (Negative) RSV (RT-PCR) Negative (Negative) SARS-CoV-2 RNA (RT-PCR) Negative (Negative) Group A Strep (PCR) Not detected (Negative) Imaging Data Attestation: I personally reviewed and interpreted this imaging study as follows: Radiologist's impression: ITS Impressions Chest X-Ray 06/14/25 18:36 IMPRESSION: 1. Normal chest radiograph. Discharge Plan Discharge Clinical Impression: Bacterial tonsillitis Patient Disposition: Home Condition: Stable Instructions: Antibiotic Form, Tonsillitis (ED) Additional Instructions: Please return to the ER with any worsening symptoms. Follow-up with primary care provider in 2-3 days to ensure your healing. You may take Tylenol and/or ibuprofen for pain and fever control. Please take Zofran as needed for nausea. Complete your full dose of antibiotics. Patient Language: Mosotho Prescriptions: New amoxicillin 500 mg tablet 500 mg PO Q12H Qty: 20 0RF No Action acetaminophen 500 mg tablet 1,000 mg PO TID PRN (Reason: isabel) 7 Days Qty: 42 0RF ibuprofen 800 mg tablet 800 mg PO TID PRN (Reason: pain) 7 Days Qty: 21 0RF methocarbamol 750 mg tablet 1,500 mg PO TID Qty: 42 0RF Follow-up/Referrals: Kailash Bhatia MD [Physician, Family Practice] UNKNOWN,DOCTOR [Primary Care Provider] Stand Alone Forms: Work/School Release IP Time of Disposition: 20:25
[2025-06-14] MEDS: ACETAMINOPHEN 500 MG TABLET 1000 MG PO (18:44)
[2025-06-14] MEDS: KETOROLAC 15 MG/ML VIAL (*BKC) IV PUSH (18:44)
[2025-06-14] MEDS: SODIUM CHLORIDE 0.9% IV 1,000 ML 999 ML IV CONT (18:45)
[2025-06-14 18:55] LABS: Hematocrit 43.6 % (42.0-52.0); Hemoglobin 14.8 g/dL (14.0-18.0); Immature Granulocyte Percent A 0.3 % (0-0.5); Lymphocytes Absolute Auto 1.02 K/mm3 (0.9-3.2); Mean Corpuscular HGB Conc 33.9 g/dl (32-36); Mean Corpuscular Hemoglobin 28.4 pg (26-34); Mean Corpuscular Volume 83.7 fl (80-100); Nucleated Red Blood Cells Absolute Auto 0.000 K/mm3 (0.0-0.012); Nucleated Red Blood Cells Perc 0.0 % (0.0-0.2); Platelet Count Result 218 k/mm3 (150-375); Red Blood Count 5.21 M/mm3 (4.6-6.20); White Blood Count 7.9 K/mm3 (4.5-10.0)
[2025-06-14 19:00] VITALS: O2SAT 100
[2025-06-14 19:06] LABS: Alanine Aminotransferase 19 U/L (6-50); Albumin Level 4.5 g/dL (3.5-5.1); Alkaline Phosphatase 77 U/L (38-126); Anion Gap 7 mmol/L (4-12); Aspartate Amino Transferase 26 U/L (17-59); Bilirubin,Total 0.4 mg/dL (0.2-1.3); Blood Urea Nitrogen 10 mg/dL (9-20); Calcium 9.0 mg/dL (8.4-10.2); Carbon Dioxide 28 mmol/L (22-30); Chloride 99 mmol/L (98-107); Estimated CRCL calculation 90 ml/min; Estimated Glomerular Filt Rate > 60; Glucose 104 mg/dL (65-110); Potassium 3.7 mmol/L (3.4-5.0); Sodium 134 mmol/L (137-145); Total Protein 8.2 g/dL (6.3-8.2)
[2025-06-14 19:11] LABS: Negative Monotest Control Negative (Negative); Positive Monotest Control Positive (Positive)
[2025-06-14 19:12] LABS: Influenza A QL RT-PCR Negative (Negative); Influenza B QL RT-PCR Negative (Negative); RSV RNA, RT-PCR Negative (Negative); SARS-CoV-2 RNA PCR Negative (Negative)
[2025-06-14 19:19] LABS: Strep Group A RT-PCR NOT DETECTED (Negative)
[2025-06-14 20:43] VITALS: BP 134/78; PULSE 72; RESP 18; TEMP 37.2; O2SAT 100
== END 2025-06-14 21:17 | disposition home or self-care (01) ==
PROVIDERS: Emergency Provider Registered Nurse
DX: J03.80 Acute tonsillitis due to other specified organisms (principal); B96.89 Other specified bacterial agents as the cause of diseases classified elsewhere; F17.290 Nicotine dependence, other tobacco product, uncomplicated; Z20.822 Contact with and (suspected) exposure to COVID-19
CPT/HCPCS: 36415; 71046; 80053; 85025; 86308; 87637; 87651; 96361; 96374; 99284; A9270; J1885; J7030